=== PATIENT | male | born 1990 | race Caucasian/White ===

== ENCOUNTER 2018-03-09 20:06 | Emergency (ER) | payer OTHER ==
[~2018-03-09] VITALS: Ht 182.9 cm; Wt 113.6 kg
[2018-03-09 20:08] VITALS: TEMP 97.9
[2018-03-09] MEDS ORDERED: ADDERALL XR30 MG PO (20:37)
[2018-03-09] MEDS ORDERED: ADDERALL XR25 MG PO (20:38)
[2018-03-09] MEDS ORDERED: ADDERALL15 MG PO (20:40)
[2018-03-09 20:47] LABS: BASO % 0.3 % (0.0-2.0); EOS # 0.4 (0.0-0.7); EOS % 3.1 % (0-4.0); GRAN # 6.7 (1.4-6.5); GRAN % 57.3 % (42.2-75.2); HEMATOCRIT 45.8 % (42.0-52.0); HEMOGLOBIN 15.8 g/dl (13.5-18.0); LYMPH # 3.8 (1.2-3.4); LYMPH % 32.1 % (20.0-51.0); MEAN CELL VOLUME 87 fl (80.0-100.0); MEAN CORPUSCULAR HEMOGLOBIN 30 pg (27.0-31.0); MEAN CORPUSCULAR HGB CONC 35 g/dl (33.0-37.0); MEAN PLATELET VOLUME 8.9 fl (7.4-10.4); MONO # 0.8 (0.1-0.6); MONO % 6.6 % (1.7-9.3); PLATELET COUNT 274 K/mm3 (130-400); RED BLOOD COUNT 5.29 M/mm3 (4.20-5.60); REDCELL DISTRIBUTION WIDTH-CV 12.2 % (11.5-14.5)
[2018-03-09 20:56] LABS: ALANINE AMINOTRANSFERASE 75 U/L (21-72); ALBUMIN 4.5 gm/dL (3.5-5.0); ALKALINE PHOSPHATASE 74 U/L (50-136); ANION GAP 13 mmol/L (7-16); AST,SGOT 35 U/L (15-37); BILIRUBIN,TOTAL 0.7 mg/dL (0.0-1.0); BLOOD UREA NITROGEN 12 mg/dL (9-20); CALCIUM 9.4 mg/dL (8.4-10.2); CARBON DIOXIDE 25 mmol/L (22-30); CHLORIDE 99 mmol/L (98-107); CREATININE, serum 0.78 mg/dL (0.66-1.25); GLUCOSE 89 mg/dL (74-106); POTASSIUM 3.8 mmol/L (3.4-5.0); SODIUM 137 mmol/L (137-145); TOTAL PROTEIN 7.9 gm/dL (6.4-8.2)
[2018-03-09 21:11] LABS: TROPONIN-I < 0.012 ng/mL (0.000-0.034)
[2018-03-09 21:38] LABS: TRICYCLIC ANTIDEPRESS URINE NEGATIVE
[2018-03-09] MEDS ORDERED: XANAX 0.5MG0.5 MG PO (22:38)
[2018-03-09 23:15] VITALS: BP 130/87; PULSE 107
== END 2018-03-09 23:22 | disposition home or self-care (01) ==
LOC: COL.ER 20:06
PROVIDERS: Emergency Medicine
DX: R00.0 Tachycardia, unspecified (principal)